=== PATIENT | male | born 1955 | race African-American/Black ===

== ENCOUNTER → 2016-12-28 | Outpatient (CLI) | payer OTHER ==
[~2016-12-28] MED LIST: CASO50TA2 PO; IOHEXOL 350 MG/ML 10 ML VIAL (for RAD DIAG) IV ONE; MELO7.5T4 PO; TAMS5CAP PO; VITA400T2 PO
--- NOTE | 2016-12-28 11:59 | RADRPT ---
EXAM DATE/TIME: 12/28/2016 11:12 [facility] COMPARISON: No previous studies available for comparison. INDICATIONS : Evaluate metastatic prostate cancer. IV CONTRAST: 95 cc Omnipaque 350 (iohexol) IV ORAL CONTRAST: Prescribed oral contrast ingested. RADIATION DOSE: 8.23 CTDIvol (mGy) MEDICAL HISTORY : Carcinoma, prostate. SURGICAL HISTORY : Prostate surgery ENCOUNTER: Initial ACUITY: 1 day PAIN SCALE: 0/10 LOCATION: Abdomen TECHNIQUE: Volumetric scanning of the abdomen and pelvis was performed. Using automated exposure control and ad justment of the mA and/or kV according to patient size, radiation dose was kept as low as reasonably achievable to obtain optimal diagnostic quality images. FINDINGS: LOWER LUNGS: The visualized lower lungs are clear. LIVER: Homogeneous density without lesion. There is no dilation of the biliary tree. No calcified gallston es. SPLEEN: Normal size without lesion. PANCREAS: Within normal limits. KIDNEYS: Normal in size and shape. There is no mass, stone or hydronephrosis. ADRENAL GLANDS: Within normal limits. VASCULAR: There is no aortic aneurysm. 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 BOWEL/MESENTERY: The stomach, small bowel, and colon demonstrate no acute abnormality. There is no free intraperitone al air or fluid. ABDOMINAL WALL: Within normal limits. RETROPERITONEUM: There is no lymphadenopathy. BLADDER: No wall thickening or mass. REPRODUCTIVE: The prostate gland is absent. INGUINAL: There is a solitary mildly enlarged left inguinal lymph node. This is essentially the junction of the distal external iliac artery and common femoral artery. It measures 2.3 x 1.5 cm. MUSCULOSKELETAL: Degenerative changes are seen involving the lumbar spine. No lytic or blastic lesions are appreciated . CONCLUSION: 1. Solitary enlarged left external iliac chain lymph node measuring 2.3 x 1.5 cm. 2. Prior prostatectomy. 3. Duplicated IVC. Juan Manuel Guadalupe Jr., MD on December 28, 2016 at 11:31 Board Certified Radiologist. This report was verified electronically.
--- NOTE | 2016-12-28 16:31 | RADRPT ---
EXAM DATE/TIME: 12/28/2016 13:25 [facility] COMPARISON: CT ABDOMEN & PELVIS W CONTRAST, December 28, 2016, 11:12. PRIOR BONE SCANS: No correlative bone scan available for comparison. INDICATIONS : Metastatice adenocarcinoma to prostate for 1 year. DOSE: 30.2 mCi Tc99m MDP IV MEDICAL HISTORY : Carcinoma, prostate. SURGICAL HISTORY : None. ENCOUNTER: Initial ACUITY: 1 yr PAIN SCALE: 2/10 LOCATION: Prostate. TECHNIQUE: Three hours post intravenous administration of radiotracer, whole body bone scan imaging was performe d. FINDINGS: Prominent degenerative arthritic changes are present in the knees, most conspicuous involving the lat eral compartment of the left knee. There is mild asymmetric increased uptake involving the right side of the L4 vertebral body anteriorly. This is nonspecific but correlation with MRI of the lumbar spin e with be suggested. Skeletal uptake elsewhere symmetric and benign in appearance. CONCLUSION: Nonspecific focus of activity in L4 vertebral body. There is prominent degenerative change present on the CT exam, however further evaluation with MRI lumbar spine suggested. Laith Mike MD on December 28, 2016 at 16:25 Board Certified Radiologist. This report was verified electronically.
== END ==
LOC: HRAD 09:43
PROVIDERS: ATTEND Urology
DX: C79.82 Secondary malignant neoplasm of genital organs (principal); C80.1 Malignant (primary) neoplasm, unspecified
CPT/HCPCS: 74177; 78306; A9503; Q9967

== ENCOUNTER → 2017-07-14 | Outpatient (CLI) | payer OTHER ==
[~2017-07-14] MED LIST changes: +ASCO100037; +ERGO400T; -IOHEXOL 350 MG/ML 10 ML VIAL (for RAD DIAG) IV ONE; +IOHEXOL 350 MG/ML 10 ML VIAL (for RAD DIAG) IVCONTRAST ONE; +MELO7.5T27 PO; -MELO7.5T4 PO; -VITA400T2 PO
--- NOTE | 2017-07-14 11:00 | RADRPT ---
EXAM DATE/TIME: 07/14/2017 10:15 [facility] COMPARISON: CT ABDOMEN & PELVIS W CONTRAST, December 28, 2016, 11:12. INDICATIONS : Metastatic adenocarcinoma to prostate. IV CONTRAST: 86 cc Omnipaque 350 (iohexol) IV ORAL CONTRAST: No oral contrast ingested. RADIATION DOSE: 10.91 CTDIvol (mGy) MEDICAL HISTORY : None SURGICAL HISTORY : None. ENCOUNTER: Initial ACUITY: 1 month PAIN SCALE: 0/10 LOCATION: Bilateral chest/abdomen TECHNIQUE: Volumetric scanning of the abdomen and pelvis was performed. Using automated exposure control and ad justment of the mA and/or kV according to patient size, radiation dose was kept as low as reasonably achievable to obtain optimal diagnostic quality images. DICOM format image data is available electro nically for review and comparison. FINDINGS: LOWER LUNGS: The visualized lower lungs are clear. LIVER: Homogeneous density without lesion. There is no dilation of the biliary tree. No calcified gallston es. SPLEEN: Normal size without lesion. PANCREAS: Within normal limits. KIDNEYS: Normal in size and shape. There is no mass, stone or hydronephrosis. ADRENAL GLANDS: Within normal limits. VASCULAR: There is no aortic aneurysm. A duplicated IVC is observed. BOWEL/MESENTERY: The stomach, small bowel, and colon demonstrate no acute abnormality. There is no free intraperitone al air or fluid. ABDOMINAL WALL: Within normal limits. RETROPERITONEUM: There is no lymphadenopathy. BLADDER: There is a 3.4 x 1.0 cm right lobe structure involving the posterior urinary bladder wall. It is rela tively high in attenuation compared to the adjacent bladder wall. There is mild circumferential wall thickening of the bladder. No distention. REPRODUCTIVE: The prostate gland is surgically absent. INGUINAL: Again seen is a solitary enlarged left external iliac chain lymph node. This measures 2.5 x 1.4 cm wh ich is unchanged. No other enlarged lymph nodes observed. MUSCULOSKELETAL: A degenerative lumbar spine. No lytic or blastic lesions appreciated. CONCLUSION: 1. 3.4 x 1.0 cm bilobed structure involving the posterior urinary bladder wall. I am unsure if this r elates to a blood clot, layering debris, or a true mass. Further evaluation is suggested. 2. Unchanged solitary enlarged left external iliac chain lymph node. 3. Prior prostatectomy. 4. Duplicated IVC. Juan Manuel Guadalupe Jr., MD on July 14, 2017 at 10:53 Board Certified Radiologist. This report was verified electronically.
--- NOTE | 2017-07-14 13:32 | RADRPT ---
EXAM DATE/TIME: 07/14/2017 12:37 [facility] COMPARISON: CT ABDOMEN & PELVIS W CONTRAST, July 14, 2017, 10:15. BONE SCAN (WHOLE BODY), December 28, 2016, 13:2 5. PRIOR BONE SCANS: Correlative bone scan(s) available for comparison;12/2016 INDICATIONS : Prostate cancer. DOSE: 31.2 mCi Tc99m MDP IV MEDICAL HISTORY : Carcinoma, prostate. Ex-smoker. SURGICAL HISTORY : Prostatectomy. ENCOUNTER: Initial ACUITY: 1 day PAIN SCALE: 0/10 LOCATION: Bilateral lower quadrant TECHNIQUE: Three hours post intravenous administration of radiotracer, whole body bone scan imag ing was performed. FINDINGS: Minimal asymmetric uptake is seen in the L4 vertebral body centrally seen on 12/28/2016. This is stabl e. No other abnormal uptake is identified. This correlates with degenerative changes seen by scan o f the abdomen and pelvis. CONCLUSION: Stable bone scan as described above. Nixon De Jesus MD FACR on July 14, 2017 at 13:30 Board Certified Radiologist. This report was verified electronically.
== END ==
LOC: HRAD 08:15
PROVIDERS: ATTEND Urology
DX: C79.82 Secondary malignant neoplasm of genital organs (principal)
CPT/HCPCS: 74177; 78306; A9503; Q9967

== ENCOUNTER 2018-01-24 18:15 | Emergency (ER) | payer OTHER ==
[~2018-01-24] VITALS: Ht 188 cm; Wt 100.0 kg
[~2018-01-24 18:15] MED LIST changes: -IOHEXOL 350 MG/ML 10 ML VIAL (for RAD DIAG) IVCONTRAST ONE
[2018-01-24 18:20] VITALS: BP 163/100; TEMP 97.5; O2SAT 99
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
[2018-01-24] MEDS ORDERED: CYCL10TA PO (18:39)
[2018-01-24] MEDS ORDERED: IBUP-232 PO (18:39)
== END 2018-01-24 18:46 | disposition home or self-care (01) ==
LOC: NEPK 18:15
DX: Z04.1 Encounter for examination and observation following transport accident (principal); M17.12 Unilateral primary osteoarthritis, left knee
CPT/HCPCS: 99283